=== PATIENT | female | born 1985 | race Two or more races ===

== ENCOUNTER 2024-06-24 11:47 | Emergency (ER) | payer MEDICAID, OTHER ==
[~2024-06-24] VITALS: Ht 154.9 cm; Wt 68.9 kg
[2024-06-24] MEDS ORDERED: hydrOXYzine 10 MG TABLET ONE (12:16)
[2024-06-24] MEDS ORDERED: METHOCARBAMOL (500MG) 500 MG TABLET ONE (12:16)
[2024-06-24] MEDS: hydrOXYzine 10 MG TABLET PO ONE (12:22)
[2024-06-24] MEDS: METHOCARBAMOL (750MG) 750 MG TABLET PO SCH (12:22)
[2024-06-24] MEDS ORDERED: TIZA4TAB5 PO (13:55)
[2024-06-24 14:07] VITALS: BP 116/63; TEMP 97.7; O2SAT 99
== END 2024-06-24 14:08 | disposition home or self-care (01) ==
LOC: ER 11:53
DX: R07.81 Pleurodynia (principal); M25.512 Pain in left shoulder; I10 Essential (primary) hypertension; J45.909 Unspecified asthma, uncomplicated; K21.9 Gastro-esophageal reflux disease without esophagitis; Z88.5 Allergy status to narcotic agent; Y04.0XXA Assault by unarmed brawl or fight, initial encounter; Y93.89 Activity, other specified; Y92.89 Other specified places as the place of occurrence of the external cause; Y99.8 Other external cause status
CPT/HCPCS: 99284; 71045; 73030; Q0177